=== PATIENT | male | born 1975 | race Caucasian/White ===

== ENCOUNTER 2018-07-21 22:09 | Emergency (ER) | payer OTHER ==
[2018-07-21 22:24] VITALS: BP 130/78; PULSE 90; RESP 18; TEMP 98.1
[2018-07-21] MEDS ORDERED: CEPHALEXIN 500 MG CAP PO STA (22:54)
--- NOTE | 2018-07-21 23:07 | ED ---
Skin/Abscess/FB HPI - General Chief complaint: Skin/Abscess/Foreign Body Stated complaint: boil infection Time Seen by Provider: 07/21/18 22:31 Source: patient, RN notes reviewed Mode of arrival: ambulatory Limitations: no limitations - History of Present Illness Initial comments: This is a 42-year-old male who presents to the emergency department with chief complaint of "boil infection." Patient is a resident at [facility]. Patient states that 14 days ago he developed a pimple-like lesion on the left side of his neck. He states that it progressively got more swollen and painful and he was placed on Bactrim 7 days ago. Patient finished his last dose of Bactrim this evening around dinnertime. He states 5 days ago the infection began draining. Patient states he was sent to the emergency department for incision and drainage. He denies any fevers or chills. Denies any history of abscesses or history of MRSA. Denies any recent chest pain or shortness breath, abdominal pain, nausea or vomiting. - Related Data Previous Rx's Medication Instructions Recorded Cephalexin [Keflex] 500 mg PO Q12HR #14 cap 07/21/18 Sulfamethox-Tmp 800-160Mg [Bactrim 1 tab PO Q12HR #14 tab 07/21/18 DS 800-160 mg] Allergies Allergy/AdvReac Type Severity Reaction Status Date / Time No Known Allergies Allergy Verified 07/21/18 22:24 Review of Systems ROS Statement: Those systems with pertinent positive or pertinent negative responses have been documented in the HPI. ROS Other: All systems not noted in ROS Statement are negative. Past Medical History Past Medical History: No Reported History History of Any Multi-Drug Resistant Organisms: None Reported Past Surgical History: No Surgical Hx Reported Past Psychological History: No Psychological Hx Reported Smoking Status: Current every day smoker Past Alcohol Use History: None Reported Past Drug Use History: Cocaine General Exam - General Exam Comments Initial Comments: General: Awake and alert, well-developed; in no apparent distress. HEENT: Head atraumatic, normocephalic. Pupils are equal, round and reactive to light. Extraocular movements intact. Oropharynx moist without erythema or exudate. Neck: Supple. Normal ROM. Cardiovascular: Regular rate and rhythm. No murmurs, rubs or gallops. Chest symmetrical. Respiratory: Lungs clear to auscultation bilaterally. No wheezes, rales or rhonchi. Normal respiratory effort with no use of accessory muscles. Musculoskeletal: Normal ROM, no tenderness bilateral upper and lower extremities. Ambulating normally. Skin: Erythematous, swollen and tender inflamed cyst left neck. Measures approximately 3.0 cm in diameter with central opening. Purulent drainage. Neurological: Alert and oriented x3. CN II-XII grossly intact. Speech is fluent and answers are appropriate. No focal neuro deficits. Psychiatric: Normal mood and affect. No overt signs of depression or anxiety noted. Limitations: no limitations Course Vital Signs 07/21/18 22:22 Temperature 98.1 F Pulse Rate 90 Respiratory 18 Rate Blood Pressure 130/78 O2 Sat by Pulse 98 Oximetry Medical Decision Making - Medical Decision Making This is a 42-year-old male who presents to the emergency department with chief complaint of "boil infection" on neck. Patient has been on Bactrim for the past 7 days. He states that the infection has been draining for approximately 5 days. On physical examination, there is a large inflamed cyst to the left side of neck with a central opening. The cyst sac was removed and iodoform packing was placed within the opening. A wound culture was obtained and is pending. Patient will be started on another course of Bactrim as well as a course of Keflex. Recommended removing a small part of the packing each day. Patient's vital signs are stable and he is in no acute distress. He is afebrile. Return parameters were discussed. Patient will be discharged home at this time. He is in agreement with plan and voices understanding. All questions were answered. Disposition Clinical Impression: Infected sebaceous cyst Disposition: HOME SELF-CARE Condition: Good Instructions: Cyst (ED) Additional Instructions: Please take medications as prescribed. Please follow up with primary care provider within 1-2 days. Return to emergency department if symptoms should worsen or any concerns arise. Prescriptions: Cephalexin [Keflex] 500 mg PO Q12HR #14 cap Sulfamethox-Tmp 800-160Mg [Bactrim DS 800-160 mg] 1 tab PO Q12HR #14 tab Is patient prescribed a controlled substance at d/c from ED?: No Referrals: None,Stated [Primary Care Provider] - 1-2 days Time of Disposition: 23:04
== END 2018-07-21 23:13 | disposition home or self-care (01) ==
LOC: EC 22:09
DX: L72.3 Sebaceous cyst (principal); F17.200 Nicotine dependence, unspecified, uncomplicated
CPT/HCPCS: 87070; 87205; 99283